=== PATIENT | female | born 1945 | race Caucasian/White ===

== ENCOUNTER 2024-12-10 11:08 | Emergency (ER) | payer MEDICARE ==
[2024-12-10] MEDS ORDERED: Acetaminophen 325 MG TAB ONE (11:23)
[2024-12-10] MEDS ORDERED: Lidocaine 1% (PF) 30 ML VIAL ONE (11:23)
[2024-12-10] MEDS ORDERED: CEFAZOLIN 2 GM VIAL ONE (13:12)
[2024-12-10] MEDS ORDERED: Bupivacaine PF 0.5% 30 ML VIAL ONE (14:26)
== END 2024-12-10 19:16 | disposition home or self-care (01) ==
LOC: CSHERS 11:08
DX: S62.621B Displaced fracture of middle phalanx of left index finger, initial encounter for open fracture (principal); W25.XXXA Contact with sharp glass, initial encounter
CPT/HCPCS: 12001; 73140; 82962; 96374; 99284; J0665; 36416